=== PATIENT | female | born 1925 | race Caucasian/White ===

== ENCOUNTER → 2016-05-28 | Outpatient (CLI) | payer MEDICARE, OTHER ==
--- NOTE | 2016-05-28 14:05 | KCIC ---
PROCEDURE Lumbar spine MRI without contrast. HISTORY Radiculopathy. TECHNIQUE Multiplanar and multi sequence magnetic resonance imaging of the lumbar spine was performed without contrast. COMPARISON None. FINDINGS There is grade 1 anterolisthesis of L4 on L5, measuring 2 mm. There is lumbar levoscoliosis centered at L3-L4. No suspicious osseous lesion is seen. There is degenerative endplate remodeling with disc space narrowing primarily along the right aspects of L3-L4 and L4-L5 and left aspect of L5-S1. This corresponds with levels of maximum scoliotic concavity. There are multiple endplate Schmorl's nodes. There is diffuse disc desiccation. The conus terminates at L1. There is a 1.0 cm T2 hypo intense lesion with adjacent 1.0 cm T2 hyperintense lesion within the posterior mid zone of the left kidney, likely a partially hemorrhagic cyst. At L1-L2, there is a diffuse disc bulge and endplate osteophytosis. There is mild facet arthropathy. There is mild bilateral foraminal stenosis. There is mild central canal stenosis. At L2-L3, there is a left foraminal to lateral disc protrusion superimposed on a diffuse disc bulge and left lateral predominant endplate osteophytosis. There is mild right and moderate left facet arthropathy. There is hypertrophy of the ligamentum flavum. There is mild right and moderate left foraminal stenosis with abutment of the exiting left L2 nerve root. There is mild to moderate central canal stenosis. At L3-L4, there is a right foraminal to extra foraminal disc protrusion superimposed on a disc bulge and right lateral predominant endplate osteophytosis. There is mild right greater than left facet arthropathy. There is hypertrophy of the ligamentum flavum. There is moderate right foraminal stenosis with effacement of the exiting right L3 nerve root. There is mild central canal stenosis. At L4-L5, there is a broad-based posterior disc protrusion superimposed on a disc bulge and endplate remodeling. There is moderate bilateral facet arthropathy. There is mild left greater than right foraminal stenosis. At L5-S1, there is a disc bulge and endplate osteophytosis. There is mild right greater than left facet arthropathy. There is mild bilateral foraminal stenosis with abutment of the exiting L5 nerve roots. IMPRESSION 1. 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 This results in mild bilateral foraminal and central canal stenosis at L1-L2, mild right and moderate left foraminal and mild to moderate central canal stenosis at L2-L3, moderate right foraminal and mild central canal stenosis at L3-L4, mild left greater than right foraminal stenosis at L4-L5, and mild bilateral foraminal stenosis at L5-S1. 2. Lumbar scoliosis and minimal grade 1 anterolisthesis of L4 on L5. 3. Mixed T2 hyperintense and hypo intense lesion within the posterior mid zone of the left kidney measuring 2.0 cm in conglomerate, possibly a partially hemorrhagic cyst. Renal sonography or renal protocol CT or MRI can be performed to exclude a solid lesion component. Electronically signed by: Ariana Tam (May 28, 2016 14:04:20)
== END | disposition home or self-care (01) ==
LOC: KCIC MRI 12:43
PROVIDERS: ATTEND Orthopaedic Surgery Sports Medicine
DX: M54.16 Radiculopathy, lumbar region (principal); M48.06 Spinal stenosis, lumbar region
CPT/HCPCS: 72148